=== PATIENT | female | born 1955 | race Caucasian/White ===

== ENCOUNTER 2020-03-27 10:03 | Emergency (ER) | payer MEDICARE, OTHER, SELFPAY ==
[~2020-03-27] VITALS: Ht 160 cm; Wt 65.1 kg
[2020-03-27 10:08] VITALS: BP 157/63
[2020-03-27] MEDS ORDERED: ONDANSETRON ODT 4 MG PO ONE (10:30)
[2020-03-27] MEDS ORDERED: DIPHTHERIA-TETANUS ADULT 0.5ML IM-VACC ONE (10:30)
[2020-03-27] MEDS ORDERED: OXYcodone/APAP 5/325MG TABLET PO ONE (10:30)
[2020-03-27] MEDS ORDERED: OXYcodone/APAP 5/325MG TABLET ONE (10:36)
[2020-03-27] MEDS ORDERED: ONDANSETRON ODT 4 MG ONE (10:36)
[2020-03-27] MEDS ORDERED: DIPH,PERTUSS(ACELL),TET VAC/PF 0.5 ML IM-VACC ONE (10:37)
[2020-03-27] MEDS ORDERED: NEOSPORIN OINT. PKT 1 PACKET ONE (11:12)
== END 2020-03-27 11:23 ==
LOC: ED 10:32
DX: S51.812A Laceration without foreign body of left forearm, initial encounter (principal); I10 Essential (primary) hypertension; W01.0XXA Fall on same level from slipping, tripping and stumbling without subsequent striking against object, initial encounter; Y93.89 Activity, other specified; Y92.410 Unspecified street and highway as the place of occurrence of the external cause; Y99.8 Other external cause status
CPT/HCPCS: 73090; 90471; 90714; 99283; Q0162

== ENCOUNTER 2020-08-02 15:58 | Emergency (ER) | payer MEDICARE ==
[~2020-08-02] VITALS: Ht 157.5 cm; Wt 54.6 kg
[2020-08-02 16:05] VITALS: BP 174/95
[2020-08-02 17:21] LABS: ALANINE AMINOTRANSFERASE 24 U/L (12-78); ALBUMIN 4.1 g/dL (3.4-5.0); ANION GAP 10 mmol/L (5-15); CALCIUM 9.7 mg/dL (8.5-10.1); CHLORIDE 112 mmol/L (98-107); CREATININE 0.81 mg/dL (0.55-1.02); SALICYLATE LEVEL 4.6 mg/dL (2.8-20.0)
[2020-08-02 17:23] LABS: ALKALINE PHOSPHATASE 91 U/L (45-117); BILIRUBIN,TOTAL 0.2 mg/dL (0.2-1.0); TOTAL PROTEIN 7.3 g/dL (6.4-8.2)
[2020-08-02 17:35] LABS: BASOPHILS % (AUTO) 1 % (0-1); EOSINOPHILS % (AUTO) 0 % (1-7); LYMPHOCYTES % (AUTO) 27 % (22-44); MEAN CORPUSCULAR HEMOGLOBIN 32.7 pg (27.0-34.8); MEAN CORPUSCULAR HGB CONC 35.2 g/dL (32.4-35.8); MONOCYTES % (AUTO) 9 % (2-9); NEUTROPHILS % (AUTO) 63 % (42-75); PLATELET COUNT 177 x10^3/uL (130-400); RED BLOOD COUNT 5.11 x10^6/uL (3.82-5.3); RED CELL DISTRIBUTION WIDTH 12.5 % (9.6-15.2)
[2020-08-02 17:37] LABS: MD NO
--- NOTE | 2020-08-02 19:50 | NUR ---
NIL X 1 WHEN CALLED FOR ROOM.
--- NOTE | 2020-08-02 20:48 | NUR ---
NIL X 2 WHEN CALLED FOR ROOM.
--- NOTE | 2020-08-02 21:26 | NUR ---
NIL X 3 WHEN CALLED FOR ROOM
== END 2020-08-02 21:27 | disposition left against medical advice (07) ==
LOC: ED 21:00
DX: F31.9 Bipolar disorder, unspecified (principal)
CPT/HCPCS: 36415; 80053; 80299; 80320; 80329; 85025; 99283; G0480

== ENCOUNTER 2020-08-21 11:02 | Emergency (ER) | payer MEDICARE ==
[~2020-08-21] VITALS: Ht 160 cm; Wt 50.0 kg
--- NOTE | 2020-08-21 11:41 | NUR ---
BIB EMS FOR CHEST TIGHTNESS AND ANXIETY. PT STATES SHE HAS A HISTORY OF ANXIETY AND CALL EMS LAST NIGHT FOR THIS. SHE DECLINED HOSPITAL TRANSPORT AT THAT TIME. TODAY SHE CALLED AGAIN FOLLOWING HOME MEDICATION ADMINISTRATION OF CLONOPIN. SHE STATES SHE WAS TOLD TO TAKE 0.5MG FIRST AND IF THAT DID NOT WORK, THEN TO TAKE 1MG. SHE STATES CONTINUED ANXIETY AND CHEST TIGHTNESS DESPITE ORDERED HOME MEDICATION ADMINISTRATION. PT STATES SHE HAS A HX OF ANXIETY. MONITORS CONNECTED. EKG COMPLETE. WARM BLANKETS PROVIDED
--- NOTE | 2020-08-21 11:44 | NUR ---
LAB AT BEDSIDE. PT CONCERNED ABOUT LAB TEST. RN EDUCATED PT ON REASON FOR DR ORDER OF TROPONIN. FOLLOWING EDUCATION, PT. AGREED TO LAB WORK
[2020-08-21 12:21] LABS: BASOPHILS % (AUTO) 1 % (0-1); EOSINOPHILS % (AUTO) 1 % (1-7); LYMPHOCYTES % (AUTO) 16 % (22-44); MEAN CORPUSCULAR HEMOGLOBIN 32.7 pg (27.0-34.8); MEAN CORPUSCULAR HGB CONC 34.3 g/dL (32.4-35.8); MEAN PLATELET VOLUME 9.1 fL (7.4-10.4); MONOCYTES % (AUTO) 9 % (2-9); NEUTROPHILS % (AUTO) 73 % (42-75); PLATELET COUNT 154 x10^3/uL (130-400); RED CELL DISTRIBUTION WIDTH 13.1 % (9.6-15.2)
[2020-08-21 12:22] LABS: MD NO
[2020-08-21 12:29] LABS: ALBUMIN 3.6 g/dL (3.4-5.0); CALCIUM 9.3 mg/dL (8.5-10.1); CHLORIDE 112 mmol/L (98-107)
[2020-08-21 12:34] LABS: ALANINE AMINOTRANSFERASE 15 U/L (12-78); ALKALINE PHOSPHATASE 77 U/L (45-117); BILIRUBIN,TOTAL 0.6 mg/dL (0.2-1.0); TOTAL PROTEIN 6.6 g/dL (6.4-8.2); TROPONIN I < 0.015 ng/mL (0.000-0.045)
[2020-08-21 12:36] LABS: ANION GAP 4 mmol/L (5-15)
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
--- NOTE | 2020-08-21 13:01 | NUR ---
PT RESTING ON GURNEY. STATES SHE WOULD LIKE TO SPEAK WITH A APPRENTICE JOCKEY PRIOR TO DISCHARGE REGARING "MY RAPID THOUGHTS". VSS. NAD. WILL CONTINUE TO MONITOR
--- NOTE | 2020-08-21 13:28 | NUR ---
PT AMBULATED TO BATHROOM WITH STEADY GAIT
[2020-08-21 14:28] VITALS: BP 118/57
--- NOTE | 2020-08-21 14:28 | NUR ---
PT ELOPED WITHOUT DISCHARGE INSTRUCTIONS
--- NOTE | 2020-08-21 15:41 | NUR ---
PT PHONE FOUND ON FLOOR IN ROOM. PT STANLEY BRAN NOTIFIED THAT PHONE WILL BE IN SECURITY.
== END 2020-08-21 14:31 | disposition home or self-care (01) ==
LOC: ED 12:06
DX: R07.89 Other chest pain (principal); F41.1 Generalized anxiety disorder; R05 Cough; R00.1 Bradycardia, unspecified; I10 Essential (primary) hypertension; F17.200 Nicotine dependence, unspecified, uncomplicated
CPT/HCPCS: 36415; 71045; 80053; 84484; 85025; 93005; 99285

== ENCOUNTER 2020-09-03 23:12 | Emergency (ER) | payer MEDICARE ==
[~2020-09-03] VITALS: Ht 154.9 cm; Wt 50.0 kg
[2020-09-03] MEDS ORDERED: OXYcodone/APAP 5/325MG TABLET PO ONE (23:30)
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
--- NOTE | 2020-09-03 23:49 | NUR ---
Pt ashley Landin [phone], leaving for about 30-45 min. Will return.
--- NOTE | 2020-09-04 01:47 | NUR ---
BEDSIDE REPORT RECEIVED FROM ROSA SILVA
--- NOTE | 2020-09-04 02:00 | NUR ---
SON: Mushtaq [phone]. MAIN CONTACT, CALL WITH ANY UPDATES OR QUESTIONS. ALL PT BELONGINGS PLACED IN BAG AND PLACED IN APPROPRIATE LOCKER, X1 BAG. PT IN GOWN SITTING UPRIGHT ON GUYVETTE CHEEK. PT TO BATHROOM TO PROVIDE URINE SAMPLE. PT DENIES ANY NEEDS AT THIS TIME. SAFETY STEVENS DOWN, SITTER WITHIN VIEW.
[2020-09-04 02:19] LABS: AMPHETAMINE SCREEN, URINE Negative (Negative); BARBITURATE SCREEN, URINE Negative (Negative); BENZODIAZEPINE SCREEN, URINE Negative (Negative); CANNABINOID SCREEN, URINE Negative (Negative); COCAINE SCREEN, URINE Negative (Negative); METHADONE SCREEN, URINE Negative (Negative); OPIATE SCREEN, URINE Negative (Negative)
[2020-09-04 02:36] LABS: BASOPHILS % (AUTO) 1 % (0-1); EOSINOPHILS % (AUTO) 1 % (1-7); LYMPHOCYTES % (AUTO) 16 % (22-44); MEAN CORPUSCULAR HEMOGLOBIN 32.5 pg (27.0-34.8); MEAN CORPUSCULAR HGB CONC 34.6 g/dL (32.4-35.8); MEAN PLATELET VOLUME 9.5 fL (7.4-10.4); MONOCYTES % (AUTO) 5 % (2-9); NEUTROPHILS % (AUTO) 77 % (42-75); PLATELET COUNT 147 x10^3/uL (130-400); RED BLOOD COUNT 4.11 x10^6/uL (3.82-5.3); RED CELL DISTRIBUTION WIDTH 13.2 % (9.6-15.2)
--- NOTE | 2020-09-04 02:36 | NUR ---
PT CALLED THIS RN TO ROOM TO TALK "ABOUT GOING HOME". PT STATES "OK, YOU CAN GIVE ME MY CLOTHES NOW, IM READY TO GO. YOU CAN CALL MY SON, HE'S MY LEGAL GUARDIAN AND CAN COME AND PICK ME UP". PT EDUCATED ON BEING PLACED ON A L2K. PT BECAME INCREASINGLY AGITATED "I DONT NEED TO BE HERE, CONSULT MY SON, I AM FINE, ALL MY MEDICATIONS ARE FINE AND I DONT NEED TO BE HERE, I HAVE ALL THE THINGS AND RESOURCES I NEED. CALL MY SON". PT NOT LISTENING TO THIS RN REGARDING SITUATION AND NEED TO STAY IN ED FOR PSYCH EVAL. PT THEN STATES "OH AND LET ME SEE MY MEDICAL RECORD IT'S MY RIGHT, I KNOW MY RIGHTS AND I NEED TO SEE MY CHART, IT'S LAW", THIS RN TOLD PT I WAS UNABLE TO SHOW MEDICAL RECORD AND PT DEMANDED "BRING IN A COMPUTER, PRINT IT OUT OR GIVE ME A LAPTOP, ITS MY RIGHT!" PT PROCEEDED TO SLAM DOOR IN THIS RN FACE AND SAY "BYE, I CANT TALK TO YOU, YOU OBVIOUSLY DONT KNOW WHAT YOU'RE TALKING ABOUT."
[2020-09-04 02:41] LABS: MD NO
[2020-09-04 02:56] LABS: ALBUMIN 4.2 g/dL (3.4-5.0); ANION GAP 6 mmol/L (5-15); CALCIUM 8.8 mg/dL (8.5-10.1); CHLORIDE 114 mmol/L (98-107); CREATININE 0.76 mg/dL (0.55-1.02); SALICYLATE LEVEL 2.4 mg/dL (2.8-20.0)
--- NOTE | 2020-09-04 02:58 | NUR ---
PT SITTING UPRIGHT ON EDGE OF GURNEY WITH ICE ON INJURED EYE. NADN. NO NEEDS AT THIS TIME.
--- NOTE | 2020-09-04 03:45 | NUR ---
Covering primary for break. Pt sleeping, RR equal and unlabored. Sitter in line of site; will continue to monitor.
--- NOTE | 2020-09-04 04:02 | NUR ---
PT SITTING ON YVETTE ROWELL, PT RESTING CALMLY WITH EYES CLOSED. PT DENIES ANY NEEDS AT THIS TIME. SAFETY PRECAUTIONS IN PLACE, SITTER IN VIEW.
--- NOTE | 2020-09-04 05:03 | NUR ---
PT SITTING ON YVETTE ROWELL, PT RESTING CALMLY WITH EYES CLOSED. PT DENIES ANY NEEDS AT THIS TIME. SAFETY PRECAUTIONS IN PLACE, SITTER IN VIEW.
--- NOTE | 2020-09-04 06:00 | NUR ---
PT SITTING UPRIGHT ON GURNEY AND CONTINUALLY WALKING OUT OF ROOM STATING "OK IT'S TIME FOR ME TO LEAVE, THE HOLD HAS BEEN LIFTED, GIVE ME MY THINGS, I NEED TO GO". PT REDIRECTED AND PROVIDED CUP OF WATER PER REQUEST. NO ADDITIONAL NEEDS AT THIS TIME. SAFETY STEVENS DOWN AND SITTER IN VIEW.
--- NOTE | 2020-09-04 06:59 | NUR ---
REPORT TO LAURI SILVA
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
--- NOTE | 2020-09-04 07:10 | NUR ---
pt requesting her medications. pt advised hat there are no medications ordered at this time and awaiting pending [facility] eval for medication prescription. pt sitting up on [place]
--- NOTE | 2020-09-04 07:42 | NUR ---
updated pt again on POC. pt states "there is no sink in here. there is no garbage can in here. This is not a real hospital room" pt education given on room being secured. pt states "I am not here for that" pt re-oriented to assessment by MD and pt being placed on legal hold. pt states "my entire family is in the limousine out front". pt advised that her family is not here, that her son went home and that there is no limousine in front of the department.
--- NOTE | 2020-09-04 08:07 | NUR ---
meal tray delivered
--- NOTE | 2020-09-04 09:00 | NUR ---
Late Note: Edmundo SILVA has assumed care of pt at this time
[2020-09-04 11:03] VITALS: BP 151/72
--- NOTE | 2020-09-04 12:25 | NUR ---
gardenia with [facility] called with dr real accepting pt anytime. rn from [facility] to call for report.
--- NOTE | 2020-09-04 12:51 | NUR ---
RPT TO RICARDO GIBSON.
[2020-09-04] MEDS ORDERED: DULOXETINE 30 MG CAPSULE.DR PO SCH (21:00)
[2020-09-04] MEDS ORDERED: OLANZAPINE 2.5 MG TABLET PO SCH (21:00)
== END 2020-09-04 14:25 ==
LOC: ED 23:34
DX: S05.12XA Contusion of eyeball and orbital tissues, left eye, initial encounter (principal); F22 Delusional disorders; M54.2 Cervicalgia; I10 Essential (primary) hypertension; Z87.891 Personal history of nicotine dependence; X58.XXXA Exposure to other specified factors, initial encounter; Y93.89 Activity, other specified; Y92.89 Other specified places as the place of occurrence of the external cause; Y99.8 Other external cause status
CPT/HCPCS: 36415; 70450; 70486; 72125; 80048; 80299; 80307; 80320; 80329; 82040; 85025; 99285; 99406; G0480

== ENCOUNTER 2020-10-29 19:36 | Emergency (ER) | payer MEDICARE ==
[~2020-10-29] VITALS: Ht 160 cm; Wt 57.7 kg
[2020-10-29 21:15] LABS: BASOPHILS % (AUTO) 1 % (0-1); EOSINOPHILS % (AUTO) 1 % (1-7); LYMPHOCYTES % (AUTO) 11 % (22-44); MEAN PLATELET VOLUME 8.1 fL (7.4-10.4); MONOCYTES % (AUTO) 6 % (2-9); NEUTROPHILS % (AUTO) 82 % (42-75); PLATELET COUNT 172 x10^3/uL (130-400); RED BLOOD COUNT 4.43 x10^6/uL (3.82-5.3); RED CELL DISTRIBUTION WIDTH 13.8 % (9.6-15.2)
[2020-10-29 21:16] LABS: MD NO
[2020-10-29 21:19] LABS: ALANINE AMINOTRANSFERASE 33 U/L (12-78); ALBUMIN 4.3 g/dL (3.4-5.0); ANION GAP 10 mmol/L (5-15); CALCIUM 9.2 mg/dL (8.5-10.1); CHLORIDE 109 mmol/L (98-107); SALICYLATE LEVEL 5.4 mg/dL (2.8-20.0)
[2020-10-29 21:21] LABS: ALKALINE PHOSPHATASE 75 U/L (45-117); BILIRUBIN,TOTAL 0.7 mg/dL (0.2-1.0); TOTAL PROTEIN 7.2 g/dL (6.4-8.2)
[2020-10-29 23:27] LABS: AMPHETAMINE SCREEN, URINE Positive (Negative); BARBITURATE SCREEN, URINE Negative (Negative); BENZODIAZEPINE SCREEN, URINE Positive (Negative); CANNABINOID SCREEN, URINE Positive (Negative); COCAINE SCREEN, URINE Negative (Negative); METHADONE SCREEN, URINE Negative (Negative); OPIATE SCREEN, URINE Negative (Negative)
[2020-10-30 12:02] VITALS: BP 135/78
== END 2020-10-30 12:01 | disposition home or self-care (01) ==
LOC: ED 20:17
DX: F23 Brief psychotic disorder (principal); I10 Essential (primary) hypertension; Z87.891 Personal history of nicotine dependence
CPT/HCPCS: 36415; 80053; 80299; 80307; 80320; 80329; 82140; 85025; 99283; G0480

== ENCOUNTER 2020-12-04 10:34 | Emergency (ER) | payer MEDICARE, MEDICAID ==
[~2020-12-04] VITALS: Ht 157.5 cm; Wt 61.2 kg
[2020-12-04 10:58] VITALS: BP 124/90
--- NOTE | 2020-12-04 11:00 | NUR ---
first contact with pt. pt stated"i have chest pain due to anxiety. but i'm worried because i have heart attack before" pt denies sob/n/v at this time. pt's aox4. resps even and unlabored. all monitors in place. call light within reach. edmd at bedside for assessment at this time.
[2020-12-04 11:23] LABS: BASOPHILS % (AUTO) 1 % (0-1); EOSINOPHILS % (AUTO) 1 % (1-7); LYMPHOCYTES % (AUTO) 17 % (22-44); MEAN CORPUSCULAR HEMOGLOBIN 31.6 pg (27.0-34.8); MEAN CORPUSCULAR HGB CONC 33.9 g/dL (32.4-35.8); MEAN PLATELET VOLUME 8.6 fL (7.4-10.4); MONOCYTES % (AUTO) 8 % (2-9); NEUTROPHILS % (AUTO) 74 % (42-75); PLATELET COUNT 204 x10^3/uL (130-400); RED BLOOD COUNT 5.13 x10^6/uL (3.82-5.3); RED CELL DISTRIBUTION WIDTH 13.6 % (9.6-15.2)
[2020-12-04 11:26] LABS: MD NO
[2020-12-04 11:36] LABS: AMPHETAMINE SCREEN, URINE Positive (Negative); BARBITURATE SCREEN, URINE Negative (Negative); BENZODIAZEPINE SCREEN, URINE Positive (Negative); CANNABINOID SCREEN, URINE Positive (Negative); COCAINE SCREEN, URINE Negative (Negative); METHADONE SCREEN, URINE Negative (Negative); OPIATE SCREEN, URINE Negative (Negative)
[2020-12-04 11:38] LABS: TROPONIN I < 0.015 ng/mL (0.000-0.045)
--- NOTE | 2020-12-04 12:15 | NUR ---
Patient given discharge instructions and they have confirmed that they understand the instructions. Patient ambulatory with steady gait.
== END 2020-12-04 12:16 | disposition home or self-care (01) ==
LOC: ED 11:35
DX: R07.89 Other chest pain (principal); F12.10 Cannabis abuse, uncomplicated; F15.10 Other stimulant abuse, uncomplicated; I10 Essential (primary) hypertension; F17.200 Nicotine dependence, unspecified, uncomplicated; Z88.8 Allergy status to other drugs, medicaments and biological substances
CPT/HCPCS: 36415; 71045; 80307; 83880; 84484; 85025; 93005; 99285

== ENCOUNTER 2021-02-24 09:10 | Outpatient (CLI) | payer MEDICAID, MEDICARE ==
[~2021-02-24 09:10] MED LIST: PRAZ2CAP PO
== END 2021-02-24 23:59 | disposition home or self-care (01) ==
LOC: CFH 09:10
PROVIDERS: ATTEND Family Medicine
DX: Z12.31 Encounter for screening mammogram for malignant neoplasm of breast (principal)
CPT/HCPCS: 77063; 77067

== ENCOUNTER 2021-05-03 07:16 | Emergency (ER) | payer MEDICARE, MEDICAID ==
[~2021-05-03] VITALS: Ht 160 cm; Wt 70.0 kg
--- NOTE | 2021-05-03 07:25 | NUR ---
EKG COMPLETED IN TRIAGE
[2021-05-03 07:58] LABS: BASOPHILS % (AUTO) 1 % (0-1); EOSINOPHILS % (AUTO) 0 % (1-7); LYMPHOCYTES % (AUTO) 9 % (22-44); MEAN CORPUSCULAR HEMOGLOBIN 31.4 pg (27.0-34.8); MEAN CORPUSCULAR HGB CONC 33.9 g/dL (32.4-35.8); MEAN PLATELET VOLUME 7.8 fL (7.4-10.4); MONOCYTES % (AUTO) 6 % (2-9); NEUTROPHILS % (AUTO) 84 % (42-75); PLATELET COUNT 279 x10^3/uL (130-400); RED BLOOD COUNT 5.65 x10^6/uL (3.82-5.3)
[2021-05-03 08:22] LABS: ANION GAP 13 mmol/L (5-15); CALCIUM 10.2 mg/dL (8.5-10.1); CHLORIDE 108 mmol/L (98-107); CREATININE 1.44 mg/dL (0.55-1.02)
[2021-05-03 08:25] LABS: ALANINE AMINOTRANSFERASE 34 U/L (12-78); ALKALINE PHOSPHATASE 99 U/L (45-117); BILIRUBIN,TOTAL 0.5 mg/dL (0.2-1.0); TOTAL PROTEIN 8.7 g/dL (6.4-8.2); TROPONIN I < 0.015 ng/mL (0.000-0.045)
--- NOTE | 2021-05-03 10:28 | NUR ---
Pt to room from lobby via wheelchair at this time. PT HERE WITH C/O FEELING SHE HAD A FIB A ABOUT 4-5 HOURS AGO, REPORTS HX OF AFIB. DENIES CURRENT CP. PLACED ON ALL MONITORS, FALL PRECAUTIONS IN PLACE, CALL LIGTH PROVIDED.
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
[2021-05-03] MEDS ORDERED: ONDANSETRON 2MG/ML, 2ML IVPush ONE (11:00)
[2021-05-03] MEDS ORDERED: MORPHINE SULFATE 4 MG/ML, 1ML IVPush PRN (11:00)
[2021-05-03] MEDS ORDERED: ONDANSETRON 2MG/ML, 2ML ONE (11:08)
[2021-05-03] MEDS ORDERED: MORPHINE SULFATE 4 MG/ML, 1ML ONE (11:08)
--- NOTE | 2021-05-03 11:11 | NUR ---
PT TRANSPORTED TO CT.
[2021-05-03] MEDS ORDERED: OMNIPAQUE 350 MG/ML, 75ML BOTTLE ONE (11:26)
--- NOTE | 2021-05-03 11:50 | NUR ---
PT BACK FROM CT, MEDICATED PER OCT, REPORTS FEELING ANXIOUS, DR. DIALLO AT BEDSIDE, MEDS ORDERED BY MD FOR ANXIETY PRN.
[2021-05-03] MEDS ORDERED: LORazepam 1MG TABLET ONE (11:52)
--- NOTE | 2021-05-03 11:57 | NUR ---
PT TO XRAY.
[2021-05-03] MEDS ORDERED: LORazepam 1MG TABLET PO ONE (12:00)
--- NOTE | 2021-05-03 13:00 | NUR ---
PT ANXIOUS TO LEAVE, STATES HER KIDS ARE WAITING IN THE LOBBY FOR HER. PROVIDED DC INFORMATION, AND WALKED PT OUT TO LOBBY.
[2021-05-03 13:02] VITALS: BP 158/85
[2021-05-04] MEDS ORDERED: ATOR40TA78 PO (14:05)
[2021-05-04] MEDS ORDERED: BUSP10TA PO (14:05)
[2021-05-04] MEDS ORDERED: LOSA25TA25 PO (14:05)
[2021-05-04] MEDS ORDERED: ASPI81TA45 PO (14:05)
[2021-05-04] MEDS ORDERED: MELA10TA PO (14:05)
== END 2021-05-03 13:03 | disposition home or self-care (01) ==
LOC: ED 12:57
DX: S50.01XA Contusion of right elbow, initial encounter (principal); R07.89 Other chest pain; I10 Essential (primary) hypertension; W18.30XA Fall on same level, unspecified, initial encounter; Y93.89 Activity, other specified; Y92.89 Other specified places as the place of occurrence of the external cause; Y99.8 Other external cause status
CPT/HCPCS: 36415; 71045; 71275; 73070; 80053; 84484; 85025; 93005; 96374; 96375; 99285; J2270; J2405; Q9967

== ENCOUNTER 2021-05-04 13:44 | Emergency (ER) | payer MEDICARE, MEDICAID ==
[~2021-05-04] VITALS: Ht 160 cm; Wt 65.0 kg
--- NOTE | 2021-05-04 13:58 | NUR ---
BIB [facility]-c/o sharp substernal CP since this AM. Pt reports pain is currently 2/10. Pt speaking in full sentences, resp even and unlabored. Pt able to change herself into hospital gown. Continuous heart, oxygen and BP Monitors applied, all safety measures observed.
[2021-05-04] MEDS ORDERED: ATOR40TA78 PO (14:05)
[2021-05-04] MEDS ORDERED: ASPI81TA45 PO (14:05)
[2021-05-04] MEDS ORDERED: BUSP10TA PO (14:05)
[2021-05-04] MEDS ORDERED: MELA10TA PO (14:05)
[2021-05-04] MEDS ORDERED: LOSA25TA25 PO (14:05)
--- NOTE | 2021-05-04 14:05 | NUR ---
Report to Denise SILVA.
--- NOTE | 2021-05-04 14:38 | NUR ---
GLUING CREW LEADER AT BEDSIDE TO DRAW LABS. PT UPDATED ON POC. NO NEEDS EXPRESSED. "CP A LITTLE BETTER" ST PER MONITOR.
[2021-05-04 14:59] LABS: BASOPHILS % (AUTO) 0 % (0-1); EOSINOPHILS % (AUTO) 0 % (1-7); LYMPHOCYTES % (AUTO) 11 % (22-44); MEAN CORPUSCULAR HEMOGLOBIN 31.4 pg (27.0-34.8); MEAN CORPUSCULAR HGB CONC 34.2 g/dL (32.4-35.8); MONOCYTES % (AUTO) 7 % (2-9); NEUTROPHILS % (AUTO) 81 % (42-75); PLATELET COUNT 256 x10^3/uL (130-400); RED BLOOD COUNT 5.08 x10^6/uL (3.82-5.3); RED CELL DISTRIBUTION WIDTH 14.1 % (9.6-15.2)
[2021-05-04] MEDS ORDERED: SODIUM CHLORIDE FLUSH 10ML SYR IVF ONE (15:00)
[2021-05-04 15:09] LABS: ALANINE AMINOTRANSFERASE 35 U/L (12-78); ALBUMIN 4.5 g/dL (3.4-5.0); ANION GAP 9 mmol/L (5-15); CALCIUM 9.6 mg/dL (8.5-10.1); CHLORIDE 102 mmol/L (98-107); CREATININE 1.42 mg/dL (0.55-1.02)
--- NOTE | 2021-05-04 15:13 | NUR ---
PT AMB TO BR, GAIT STEADY. NO SIG CHANGE IN PT CONDITION NOTED. ST PER MONITOR. WAITING FOR TEST RESULTS. NO OTHER NEEDS EXPRESSED AT THIS TIME.
[2021-05-04 15:14] LABS: ALKALINE PHOSPHATASE 88 U/L (45-117); BILIRUBIN,TOTAL 0.7 mg/dL (0.2-1.0); TROPONIN I < 0.015 ng/mL (0.000-0.045)
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
--- NOTE | 2021-05-04 16:41 | NUR ---
administrative office assistant note: ANDRIA called for consult.
--- NOTE | 2021-05-04 16:45 | NUR ---
PER PT "CP OK" SR-ST PER MONITOR. MC FOR URINE Addendum: 05/04/21 at 1645 by SHAWN SPECIMAN COMPLETED AFTER AGREEMENT FROM PT. PT ASKING FOR WATER. PROVIDED TO PT. NO OTHER NEEDS EXPRESSED AT THIS TIME.
[2021-05-04 17:01] LABS: MICROSCOPIC NOT IND
[2021-05-04 17:13] LABS: AMPHETAMINE SCREEN, URINE Positive (Negative); BARBITURATE SCREEN, URINE Negative (Negative); BENZODIAZEPINE SCREEN, URINE Negative (Negative); CANNABINOID SCREEN, URINE Positive (Negative); COCAINE SCREEN, URINE Negative (Negative); METHADONE SCREEN, URINE Negative (Negative); OPIATE SCREEN, URINE Positive (Negative)
--- NOTE | 2021-05-04 18:01 | NUR ---
Patient ready for d/c. Called patient's son, Mushtaq, and advised of patient status. He states he will come to pick her up. Provided pants and a shirt for patient.
--- NOTE | 2021-05-04 18:13 | NUR ---
Per primary RN, social work advised that if patient is ready for d/c to provide taxi voucher. Taxi voucher provided and patient taken to d/c desk.
[2021-05-04 18:21] VITALS: BP 155/75
== END 2021-05-04 18:22 | disposition home or self-care (01) ==
LOC: ED 14:00
DX: F15.259 Other stimulant dependence with stimulant-induced psychotic disorder, unspecified (principal); R07.89 Other chest pain; R00.0 Tachycardia, unspecified; I10 Essential (primary) hypertension; Z88.8 Allergy status to other drugs, medicaments and biological substances
CPT/HCPCS: 36415; 71045; 80053; 80307; 81003; 83690; 84484; 85025; 93005; 99285